=== PATIENT | male | born 1945 | race Caucasian/White ===

== ENCOUNTER 2019-09-05 12:50 | Inpatient (IN) | payer OTHER ==
[~2019-09-05] VITALS: Ht 182.9 cm; Wt 111.2 kg
[2019-09-05] VITALS (13 sets, daily range): BP systolic 68–119; BP diastolic 29–84
--- NOTE | ~2019-09-05 | EEG ---
[address] [address] EEG STUDY REPORT Name: UYEN GARCIA Room: [address] IN M.R.#: [id number] Admission: 09/05/19 Attend Phys: Manpreet aM MD Discharge: Date of : 45 Report #: [id number] THIS REPORT FOR: //name// CC: [facility] The patient is being evaluated for altered mental status. EEG was done by placing the electrode by standard 10-20 system of electrode placement. Both referential and sequential montages were used for recording. Background activity is pretty slow and is about 8 Hz and 10-15 microvolt. Photic stimulation was unremarkable. The patient went to sleep and that was associated with bilateral slowing and vertex sharp waves. Throughout the record, no active epileptiform activity was noticed. IMPRESSION: This patient's EEG does not demonstrate any clear-cut epileptiform activity, but it is very disorganized and poorly formed. That is a nonspecific abnormality, which can occur with dementia, encephalopathy, effect of psychotropic medication, etc. Clinical correlation is recommended. By: 1545 [id number] Gonzalez MD /nt
--- NOTE | ~2019-09-05 | CON ---
[address] [address] CONSULTATION Name: UYEN GARCIA Room: [address] IN M.R.#: [id number] Admission: 09/05/19 Attend Phys: Manpreet Ma MD Discharge: Date of : 45 Report #: [id number] THIS REPORT FOR: //name// cc: Fransisco Liu MD, Srinath MD ~ THIS REPORT FOR: //name// CC: Manpreet Liu DATE OF SERVICE: 09/06/2019 HISTORY OF PRESENT ILLNESS: This is a 74-year-old male patient who is unable to provide any history at all. The patient is pretty sedated and does not even talk to me. I reviewed the records and it looks like he lives in a halfway. He has a history of dementia. He was in wound care and has a low blood pressure and that is why he has been admitted. REVIEW OF SYSTEMS: Entirely from the records. He apparently had hypotension, sepsis, possible aspiration, lactic acidosis, dementia. He was agitated and confused last night. That is all the history I can get. I tried to get 14-point review of system in this patient. PAST MEDICAL HISTORY: Positive for dementia. FAMILY HISTORY: Unavailable. SOCIAL HISTORY: Looks like he looks lives in a halfway. PHYSICAL EXAMINATION: The patient's examination is pretty limited. He just say a few words, but does not respond, does not follow any commands. There is no meningeal sign. I tried to do rest of the neurological examination and I was unable to do that. He does not appear to have any respiratory difficulty. Hemodynamically he is stable with a blood pressure of 100/76, pulse is 73, respiration is 23. LABORATORY DATA: White count is 8.4. GFR is 65. He did have a CT scan of the head, which would appear unremarkable. IMPRESSION: Pretty difficult to form in this patient, but it looks like the patient is pretty sedated, had some dementia, which will take even longer time for dementia medication to be out of his system. I will start doing some workup starting with an EEG. We will see if he wakes up. If he does not wake up, he will need more workup, but it will be difficult to do more workup in this patient. He is already on anticoagulation with Eliquis. Even if he had a stroke, he is not a candidate for any intervention [place] [address] CONSULTATION Name: UYEN GARCIA Room: [address]#: [id number] Admission: 09/05/19 Attend Phys: Manpreet Ma MD Discharge: Date of : 45 Report #: [id number] happened yesterday. So in this case, I think we will just await what the EEG shows and how the patient does after he is off the sedation. By: 1430 1443Pngoc Gonzalez MD /nt
[~2019-09-05 12:50] MED LIST: FUROSEMIDE 20 M20 MG PO; LANTUS SOL100 UNIT/1 SQ; METFORMIN HCL500 MG PO
[2019-09-05] MEDS ORDERED: XANAX 0.5 MG0.5 M1 PO (13:27)
[2019-09-05] MEDS ORDERED: HUMALOG100 UNIT/2 SQ (13:27)
[2019-09-05] MEDS ORDERED: NORCO 5-325 TA1 EAC1 PO (13:28)
[2019-09-05] MEDS ORDERED: LIPITOR40 MG PO (13:28)
[2019-09-05 13:29] LABS: ABSOLUTE BASOPHILS 0.1 thou/uL (0.0-0.2); ABSOLUTE EOSINOPHILS 0.1 thou/uL (0.0-0.7); ABSOLUTE LYMPHOCYTES 0.7 thou/uL (0.8-5.3); ABSOLUTE MONOCYTES 0.9 thou/uL (0.0-1.2); ABSOLUTE NEUTROPHILS 6.6 thou/uL (1.6-8.1); BASOPHILS 0.8 %; EOSINOPHILS 0.7 %; HEMATOCRIT 37.5 % (42.0-52.0); HEMOGLOBIN 12.9 gm/dL (14.0-18.0); LYMPHOCYTES 8.7 %; MCH 33.1 pg (26.0-34.0); MCHC 34.5 g/dL (28.0-37.0); MCV 95.9 fL (80.0-100.0); MONOCYTES 10.9 %; MPV 7.8 fl. (7.2-11.1); NUCLEATED RBCS 0 /100WBC; PLATELET COUNT* 357 thou/uL (150-400); POLYS 78.9 %; RBC 3.91 mil/uL (4.50-6.00); RDW-CV 13.3 % (10.5-14.5); WBC 8.4 thou/uL (4.0-11.0)
[2019-09-05] MEDS ORDERED: POTASSIUM CITR10 ME1 PO (13:29)
[2019-09-05] MEDS ORDERED: LASIX 20 MG TAB20 MG PO (13:29)
[2019-09-05] MEDS ORDERED: AMIODARONE HCL400 MG PO (13:30)
[2019-09-05] MEDS ORDERED: SUPER THERAVIT1 EACH PO (13:30)
[2019-09-05] MEDS ORDERED: VITAMIN C500 M2 PO (13:30)
[2019-09-05] MEDS ORDERED: ZOLOFT25 MG PO (13:30)
[2019-09-05] MEDS ORDERED: ASMANEX110 MCG PO (13:31)
[2019-09-05] MEDS ORDERED: ARICEPT10 M1 PO (13:31)
[2019-09-05] MEDS ORDERED: NORVASC 2.5 MG2.5 M1 PO (13:32)
[2019-09-05] MEDS ORDERED: LISINOPRIL2.5 MG PO (13:32)
[2019-09-05] MEDS ORDERED: DEPAKOTE125 MG PO (13:33)
[2019-09-05] MEDS ORDERED: ELIQUIS5 M1 PO (13:33)
[2019-09-05] MEDS ORDERED: GLUCERNA1 EACH PO (13:34)
[2019-09-05 13:35] LABS: BE 1.1 mmol/L (-2 to +3); PCO2 40.2 mmHg (35.0-45.0); pH 7.421 (7.340-7.450)
[2019-09-05] MEDS ORDERED: BACTRIM DS TAB1 EAC1 PO (13:35)
[2019-09-05] MEDS ORDERED: ZYPREXA5 MG PO (13:35)
[2019-09-05] MEDS ORDERED: SEROQUEL 25 MG25 M1 PO (13:35)
[2019-09-05 13:36] LABS: PO2 54.7 mmHg (75.0-100.0)
[2019-09-05 13:36] LABS: CALCIUM 8.9 mg/dL (8.5-10.1); CREATININE 1.6 mg/dL (0.6-1.3)
[2019-09-05 13:41] LABS: ALBUMIN 2.5 g/dL (3.4-5.0); MAGNESIUM 2.3 mg/dL (1.8-2.4); TOTAL BILIRUBIN 0.3 mg/dL (<0.1-1.0); TOTAL PROTEIN 6.9 g/dL (6.4-8.2)
[2019-09-05 14:07] LABS: URINE BILIRUBIN NEGATIVE (Negative); URINE BLOOD NEGATIVE (Negative); URINE CLARITY CLEAR; URINE COLOR YELLOW; URINE GLUCOSE-RANDOM NEGATIVE (Negative); URINE KETONES NEGATIVE (Negative); URINE LEUKOCYTES-REFLEX NEGATIVE (Negative); URINE NITRITE-REFLEX NEGATIVE (Negative); URINE PROTEIN NEGATIVE (Negative); URINE UROBILINOGEN 0.2 E.U./dl (0.2-1.0)
--- NOTE | 2019-09-05 15:22 | EKG ---
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
[2019-09-06] VITALS (19 sets, daily range): BP systolic 95–128; BP diastolic 41–99
[2019-09-06 03:30] LABS: ABSOLUTE BASOPHILS 0.1 thou/uL (0.0-0.2); ABSOLUTE EOSINOPHILS 0.1 thou/uL (0.0-0.7); ABSOLUTE LYMPHOCYTES 0.7 thou/uL (0.8-5.3); ABSOLUTE MONOCYTES 0.8 thou/uL (0.0-1.2); ABSOLUTE NEUTROPHILS 6.4 thou/uL (1.6-8.1); BASOPHILS 0.7 %; EOSINOPHILS 1.8 %; HEMATOCRIT 35.1 % (42.0-52.0); HEMOGLOBIN 11.9 gm/dL (14.0-18.0); LYMPHOCYTES 8.8 %; MCH 32.5 pg (26.0-34.0); MCHC 33.9 g/dL (28.0-37.0); MCV 95.9 fL (80.0-100.0); MONOCYTES 10.3 %; MPV 7.5 fl. (7.2-11.1); NUCLEATED RBCS 0 /100WBC; PLATELET COUNT* 321 thou/uL (150-400); POLYS 78.4 %; RBC 3.66 mil/uL (4.50-6.00); RDW-CV 13.1 % (10.5-14.5); WBC 8.1 thou/uL (4.0-11.0)
[2019-09-06 03:40] LABS: CALCIUM 8.4 mg/dL (8.5-10.1); CREATININE 1.1 mg/dL (0.6-1.3); POTASSIUM 4.7 mmol/L (3.5-5.1)
--- NOTE | 2019-09-06 15:55 | CON ---
[address] [address] CONSULTATION Name: UYEN GARCIA Room: [address] ADM IN M.R.#: [id number] Admission: 09/05/19 Attend Phys: Manpreet Ma MD Discharge: Date of : 45 Report #: [id number] THIS REPORT FOR: //name// cc: Fransisco Liu MD, Srinath MD ~ THIS REPORT FOR: //name// CC: Manpreet Liu DATE OF SERVICE: 09/06/2019 INFECTIOUS DISEASE CONSULTATION ATTENDING PHYSICIAN: Manpreet Ma MD REASON FOR EVALUATION: Early sepsis suspected due to pneumonitis, has multiple wounds as well. HISTORY OF PRESENT ILLNESS: Chart reviewed, patient examined. This is a 74-year-old gentleman who is disabled, has dementia. It is difficult to ascertain his degree of baseline at present who was followed in the wound care center, was noted to have some hypotension. He has underlying diabetes mellitus and reportedly has had history of endocarditis, although details are not available. He has been on IV antibiotics in view of his medicines unavailable. He has been on ceftriaxone, oral Bactrim. He is unable to arouse. He is currently improved. Hemodynamically, he is with fluid resuscitation. It is notable since he has been on IV antibiotics, had a central line, this has been removed. Blood and cath tip have been collected, they are unrevealing thus far. He has not had recorded temperature elevations. Initial ABG shows pH 7.421 with a pO2 of 54.7 on room air. Chest x-ray showed left medial lung density with infiltrate. Followup CT of the chest showed no evidence of pulmonary embolus. Again, suggested left lower lobe infiltrate. He was empirically started on therapy with ceftriaxone, vancomycin, piperacillin and tazobactam. ALLERGIES: None known. CURRENT MEDICATIONS: Include ceftriaxone, donepezil, amiodarone, sertraline, atorvastatin, pantoprazole, vancomycin, insulin, Zosyn, valproate, p.r.n. analgesics and antiemetics. PAST MEDICAL HISTORY: Known to have diabetes mellitus, chronic anemia, history of endocarditis, otherwise no details, previous history of stroke with left-sided deficits, dysphagia, chronic decubitus ulcers, is not clear [place] [address] CONSULTATION Name: UYEN GARCIA Lamar Room: [address]#: [id number] Admission: 09/05/19 Attend Phys: Manpreet Ma MD Discharge: Date of : 45 Report #: [id number] SOCIAL HISTORY: Not known. FAMILY HISTORY: Noncontributory. REVIEW OF SYSTEMS: Unobtainable. PHYSICAL EXAMINATION: GENERAL: He is somewhat restless. He does not arouse to any degree even when stimulated, appears chronically ill, restless, mildly undernourished. VITAL SIGNS: Temperature 98.2, pulse 72, respirations 23, blood pressure 100/76. HEENT: Normocephalic. NECK: Supple. LUNGS: Few scattered coarse breath sounds. HEART: Regular, occasional ectopy. I do not appreciate a murmur. ABDOMEN: Soft. There is no apparent tenderness, no peritoneal signs. EXTREMITIES: He has got some superficial raised areas of his lower extremities. /RECTAL: Deferred. LABORATORY DATA: Blood cultures sterile thus far. Prealbumin low at 11.3. Electrolytes: Sodium 145, potassium 4.7, chloride 112, bicarbonate is 25, anion gap of 8, BUN and creatinine 26 and 1.1. CBC most recently; white count of 8.1, H and H 11.9 and 35.1 and platelets of 321. Urinalysis was otherwise unremarkable. Lactic acid 2.6, initially repeat was 1.0. ASSESSMENT: Early sepsis suspected pneumonitis, has multiple decubitus ulcers as well. We will continue combination broad-spectrum therapy. At this point, it is difficult to ascertain any history from the patient. We will monitor expectantly. Await pending results. Continue wound care as prescribed. <ELECTRONICALLY SIGNED> By: Felipe Tovar MD 09/06/19 1555 1439 1542Josejake Tovar MD /nt
[2019-09-07 00:14] VITALS: BP 123/63
[2019-09-07 04:01] VITALS: BP 122/66
[2019-09-07 12:00] VITALS: BP 118/60
--- NOTE | 2019-09-07 14:20 | 2DMMODE ---
[address] [address] 2 D/M-MODE ECHOCARDIOGRAM Name: UYEN GARCIA Room: [address] IN M.R.#: [id number] Admission: 09/05/19 Attend Phys: Manpreet Ma, Discharge: Date of : 45 Date of Service: 09/07/19 1419 Report #: [id number] THIS REPORT FOR: cc: Fransisco Liu MD, Srinath MD Liston, Michael J. MD [facility] ~ APPROVED REPORT Study performed: 09/07/2019 13:12:47 EXAM: Limited 2D Echocardiogram BSA: 2.32 HR: 100 bpm BP: 122/66 mmHg Other Information Study Quality: Technically Limited Technically limited study due to uncooperative patient. Indications Hypotension History of Endocarditis Left Ventricle The left ventricle is normal size. There is normal left ventricular wall thickness. The left ventricular systolic function is normal. LVEF is 55-60%. Aortic Valve The aortic valve appears normal in structure. Mitral Valve The mitral valve appears normal in structure. Tricuspid Valve The tricuspid valve appears normal in structure. Pulmonic Valve The pulmonary valve was not visualized. Pericardium There is no pericardial effusion. [address] [place] [address] 2 D/M-MODE ECHOCARDIOGRAM Name: UYEN GARCIA Room: [address] IN M.R.#: [id number] Admission: 09/05/19 Attend Phys: Manpreet Ma, Discharge: Date of : 45 Date of Service: 09/07/19 1419 Report #: [id number] <Conclusion> Technically limited study due to pt combativeness. The left ventricle is normal size. There is normal left ventricular wall thickness. The left ventricular systolic function is normal. LVEF is 55-60%. <ELECTRONICALLY SIGNED> By: Timothy Lemus MD, FACC 09/07/191418 18 18 Timothy Lemus MD, FACC /INF
[2019-09-07 16:00] VITALS: BP 129/80
== END 2019-09-07 17:50 | disposition short-term general hospital (02) | DRG 853 ==
LOC: M.ERS 12:50 → M.ICU 15:30 → M.2W 15:30 → M.TBA-ER 15:30 → M.ICU 18:03 → M.2W 09-07 05:01
PROVIDERS: Personal Emergency Response Attendant; ADMIT Internal Medicine
PROC: 05PYX3Z Removal of Infusion Device from Upper Vein, External Approach (ICD-10-PCS; principal; 2019-09-07)
PROC: 0PB40ZZ Excision of Thoracic Vertebra, Open Approach (ICD-10-PCS; principal; 2019-09-07)
DX: A41.9 Sepsis, unspecified organism (principal); L89.104 Pressure ulcer of unspecified part of back, stage 4; J69.0 Pneumonitis due to inhalation of food and vomit; J96.91 Respiratory failure, unspecified with hypoxia; T80.218A Other infection due to central venous catheter, initial encounter; F03.91 Unspecified dementia, unspecified severity, with behavioral disturbance; G93.40 Encephalopathy, unspecified; E87.2 Acidosis; L89.609 Pressure ulcer of unspecified heel, unspecified stage; I10 Essential (primary) hypertension; E78.5 Hyperlipidemia, unspecified; L89.309 Pressure ulcer of unspecified buttock, unspecified stage; E11.9 Type 2 diabetes mellitus without complications; Z79.4 Long term (current) use of insulin; Z79.899 Other long term (current) drug therapy; Z79.01 Long term (current) use of anticoagulants; Z86.73 Personal history of transient ischemic attack (TIA), and cerebral infarction without residual deficits; Y84.8 Other medical procedures as the cause of abnormal reaction of the patient, or of later complication, without mention of misadventure at the time of the procedure; Y92.89 Other specified places as the place of occurrence of the external cause